=== PATIENT | female | born 1945 | race Caucasian/White ===

== ENCOUNTER 2016-09-01 14:48 | Emergency (ER) | payer MEDICARE, OTHER ==
[~2016-09-01] VITALS: Ht 149.9 cm; Wt 55.0 kg
[2016-09-01] MEDS ORDERED: SIMV20TA6 PO (15:20)
[2016-09-01] MEDS ORDERED: BACITRACIN ZINC OINT UDPKT TOP ONE (17:15)
[2016-09-01 17:16] VITALS: BP 125/66
== END 2016-09-01 17:23 | disposition home or self-care (01) ==
LOC: ER 14:57
DX: S01.01XA Laceration without foreign body of scalp, initial encounter (principal); E78.00 Pure hypercholesterolemia, unspecified; G20 Parkinson's disease; W18.09XA Striking against other object with subsequent fall, initial encounter; Y93.89 Activity, other specified; Y92.89 Other specified places as the place of occurrence of the external cause; Y99.8 Other external cause status
CPT/HCPCS: 12002; 70450; 99284

== ENCOUNTER 2017-06-23 21:27 | Inpatient (IN) | payer MEDICARE, OTHER ==
[~2017-06-23] VITALS: Ht 144.8 cm; Wt 45.4 kg
[~2017-06-23 21:27] MED LIST: ALEN70SO3 PO; B12/1TAB PO; HYDR12.54 PO; MELA5TAB3 PO; MIR25 PO; MULT-344 PO; OXYB5TAB11 PO; PREG50CA PO; SIMV20TA6 PO; TRAM50TA3 PO
[2017-06-23 21:30] VITALS: BP 97/50
[2017-06-23] MEDS ORDERED: HYDROCODONE/ACETAMINOPHEN 5/325MG TABLET PO PRN (22:15)
[2017-06-23] MEDS ORDERED: IPRATROPIUM/ALBUTEROL 0.5-3(2.5)MG/3ML NEB HHN PRN (22:15)
[2017-06-23] MEDS ORDERED: MORPHINE SULFATE 4 MG/ML CPJ (NOT FOR IM USE) IV PRN (22:15)
[2017-06-23] MEDS ORDERED: ONDANSETRON HCL 4MG/2ML VIAL IV PRN (22:15)
[2017-06-23] MEDS: IPRATROPIUM/ALBUTEROL 0.5-3(2.5)MG/3ML NEB HHN SCH (23:43)
[2017-06-24] MEDS: MELATONIN 1 MG PO SCH ×2 (01:50→22:03)
[2017-06-24] MEDS: IPRATROPIUM/ALBUTEROL 0.5-3(2.5)MG/3ML NEB HHN SCH ×4 (04:17→19:53)
[2017-06-24] MEDS: PRAMIPEXOLE DI-HCL 0.25MG TABLET PO SCH ×3 (05:14→22:04)
[2017-06-24 07:58] VITALS: BP 101/42
[2017-06-24] MEDS ORDERED: PNEUMOCOCCAL 23-VAL P-SAC VAC 0.5 ML IM ONE (08:00)
[2017-06-24] MEDS: CYANOCOBALAMIN 1000MCG TABLET PO SCH ×2 (08:49→09:00)
[2017-06-24] MEDS: PREGABALIN 25MG CAPSULE PO SCH (08:49)
[2017-06-24] MEDS: MULTIVITAMINS,THER W-MINERALS TABLET PO SCH (08:50)
[2017-06-24] MEDS: CHOLECALCIFEROL (D3) 1000 UNIT TABLET PO SCH (08:50)
[2017-06-24] MEDS: ASPIRIN 81MG TABLET PO SCH (08:51)
[2017-06-24] MEDS: DULOXETINE HCL 30MG DR CAPSULE PO SCH (08:51)
[2017-06-24] MEDS: OXYBUTYNIN CHLORIDE 5MG TABLET PO SCH ×2 (08:52→22:04)
[2017-06-24] MEDS: [UNRECOGNIZED DRUG - OTHER] PO SCH (08:53)
[2017-06-24] MEDS: OMEGA PO SCH (08:53)
[2017-06-24] MEDS: TRAMADOL 50MG TABLET PO SCH ×2 (08:57→16:56)
[2017-06-24] MEDS: HYDROCHLOROTHIAZIDE 12.5MG CAPSULE PO SCH (08:59)
[2017-06-24] MEDS ORDERED: LACTULOSE 20G/30ML UDC PO NR (12:15)
[2017-06-24 20:00] VITALS: BP 107/53
[2017-06-24] MEDS: SIMVASTATIN 20MG TABLETS PO SCH (22:05)
[2017-06-25] MEDS: IPRATROPIUM/ALBUTEROL 0.5-3(2.5)MG/3ML NEB HHN SCH ×6 (00:18→21:02)
[2017-06-25] MEDS: PRAMIPEXOLE DI-HCL 0.25MG TABLET PO SCH ×3 (06:24→21:53)
[2017-06-25 07:58] VITALS: BP 124/82
[2017-06-25] MEDS: HYDROCHLOROTHIAZIDE 12.5MG CAPSULE PO SCH (08:47)
[2017-06-25] MEDS: DULOXETINE HCL 30MG DR CAPSULE PO SCH (08:47)
[2017-06-25] MEDS: OXYBUTYNIN CHLORIDE 5MG TABLET PO SCH ×2 (08:47→21:53)
[2017-06-25] MEDS: CHOLECALCIFEROL (D3) 1000 UNIT TABLET PO SCH (08:47)
[2017-06-25] MEDS: PREGABALIN 25MG CAPSULE PO SCH (08:47)
[2017-06-25] MEDS: CYANOCOBALAMIN 1000MCG TABLET PO SCH (08:48)
[2017-06-25] MEDS: OMEGA PO SCH (08:48)
[2017-06-25] MEDS: ASPIRIN 81MG TABLET PO SCH (08:48)
[2017-06-25] MEDS: TRAMADOL 50MG TABLET PO SCH ×2 (08:48→17:36)
[2017-06-25] MEDS: MULTIVITAMINS,THER W-MINERALS TABLET PO SCH (08:48)
[2017-06-25] MEDS: [UNRECOGNIZED DRUG - OTHER] PO SCH (08:49)
[2017-06-25 20:00] VITALS: BP 109/50
[2017-06-25] MEDS: MELATONIN 1 MG PO SCH (21:49)
[2017-06-25] MEDS: SIMVASTATIN 20MG TABLETS PO SCH (21:55)
[2017-06-26] MEDS: IPRATROPIUM/ALBUTEROL 0.5-3(2.5)MG/3ML NEB HHN SCH ×6 (00:29→22:01)
[2017-06-26] MEDS: PRAMIPEXOLE DI-HCL 0.25MG TABLET PO SCH ×3 (06:03→21:06)
[2017-06-26] MEDS: ACETAMINOPHEN 650MG/20.3ML UDC PO PRN (06:55)
[2017-06-26 08:04] VITALS: BP 109/50
[2017-06-26] MEDS: OXYBUTYNIN CHLORIDE 5MG TABLET PO SCH ×2 (08:20→21:05)
[2017-06-26] MEDS: CHOLECALCIFEROL (D3) 1000 UNIT TABLET PO SCH (08:20)
[2017-06-26] MEDS: ASPIRIN 81MG TABLET PO SCH (08:20)
[2017-06-26] MEDS: DULOXETINE HCL 30MG DR CAPSULE PO SCH (08:20)
[2017-06-26] MEDS: MULTIVITAMINS,THER W-MINERALS TABLET PO SCH (08:20)
[2017-06-26] MEDS: TRAMADOL 50MG TABLET PO SCH ×2 (08:22→16:57)
[2017-06-26] MEDS: OMEGA PO SCH (08:22)
[2017-06-26] MEDS: [UNRECOGNIZED DRUG - OTHER] PO SCH (08:23)
[2017-06-26] MEDS: CYANOCOBALAMIN 1000MCG TABLET PO SCH (08:23)
[2017-06-26] MEDS ORDERED: ALENDRONATE SODIUM 35MG TABLET PO SCH (09:00)
[2017-06-26] MEDS: PREGABALIN 25MG CAPSULE PO SCH (09:57)
[2017-06-26] MEDS: HYDROCHLOROTHIAZIDE 12.5MG CAPSULE PO SCH (13:31)
[2017-06-26 20:00] VITALS: BP 101/51
[2017-06-26] MEDS: SIMVASTATIN 20MG TABLETS PO SCH (21:06)
[2017-06-26] MEDS: MELATONIN 1 MG PO SCH (21:06)
[2017-06-27] MEDS: IPRATROPIUM/ALBUTEROL 0.5-3(2.5)MG/3ML NEB HHN SCH ×6 (00:15→21:37)
[2017-06-27] MEDS: PRAMIPEXOLE DI-HCL 0.25MG TABLET PO SCH ×3 (05:05→22:19)
[2017-06-27 08:00] VITALS: BP 102/44
[2017-06-27] MEDS: HYDROCHLOROTHIAZIDE 12.5MG CAPSULE PO SCH (08:35)
[2017-06-27] MEDS: MULTIVITAMINS,THER W-MINERALS TABLET PO SCH (09:47)
[2017-06-27] MEDS: CYANOCOBALAMIN 1000MCG TABLET PO SCH (09:47)
[2017-06-27] MEDS: DULOXETINE HCL 30MG DR CAPSULE PO SCH (09:49)
[2017-06-27] MEDS: CHOLECALCIFEROL (D3) 1000 UNIT TABLET PO SCH (09:49)
[2017-06-27] MEDS: PREGABALIN 25MG CAPSULE PO SCH (09:49)
[2017-06-27] MEDS: OMEGA PO SCH (09:49)
[2017-06-27] MEDS: ASPIRIN 81MG TABLET PO SCH (09:49)
[2017-06-27] MEDS: OXYBUTYNIN CHLORIDE 5MG TABLET PO SCH ×2 (09:49→20:13)
[2017-06-27] MEDS: [UNRECOGNIZED DRUG - OTHER] PO SCH (09:50)
[2017-06-27] MEDS: TRAMADOL 50MG TABLET PO SCH ×2 (09:52→17:00)
[2017-06-27 13:37] LABS: HEMATOCRIT 37.1 % (36.0-48.0); HEMOGLOBIN 12.2 g/dL (12.0-16.0); MEAN CORPUSCULAR HEMOGLOBIN 30.4 pg (28.0-32.0); MEAN CORPUSCULAR VOLUME 92.2 fL (81.0-99.0); PLATELET 250 x1000/uL (130-400); RED BLOOD CELL COUNT 4.03 mill/uL (4.2-5.4); RED CELL DISTRIBUTION WIDTH 13.1 % (11.6-14.6)
[2017-06-27 13:48] LABS: CHLORIDE 104 mEq/L (98-107)
[2017-06-27 20:00] VITALS: BP 124/66
[2017-06-27] MEDS: TRAMADOL 50MG TABLET PO PRN (20:13)
[2017-06-27] MEDS: MELATONIN 1 MG PO SCH (20:13)
[2017-06-27] MEDS: SIMVASTATIN 20MG TABLETS PO SCH (20:14)
[2017-06-28] MEDS: IPRATROPIUM/ALBUTEROL 0.5-3(2.5)MG/3ML NEB HHN SCH ×6 (04:40→19:44)
[2017-06-28] MEDS: PRAMIPEXOLE DI-HCL 0.25MG TABLET PO SCH ×3 (07:00→21:23)
[2017-06-28 08:00] VITALS: BP 108/54
[2017-06-28] MEDS: CHOLECALCIFEROL (D3) 1000 UNIT TABLET PO SCH (08:51)
[2017-06-28] MEDS: OXYBUTYNIN CHLORIDE 5MG TABLET PO SCH ×2 (08:52→21:22)
[2017-06-28] MEDS: ASPIRIN 81MG TABLET PO SCH (08:52)
[2017-06-28] MEDS: PREGABALIN 25MG CAPSULE PO SCH (08:52)
[2017-06-28] MEDS: DULOXETINE HCL 30MG DR CAPSULE PO SCH (08:52)
[2017-06-28] MEDS: CYANOCOBALAMIN 1000MCG TABLET PO SCH (08:52)
[2017-06-28] MEDS: MULTIVITAMINS,THER W-MINERALS TABLET PO SCH (08:52)
[2017-06-28] MEDS: HYDROCHLOROTHIAZIDE 12.5MG CAPSULE PO SCH (08:52)
[2017-06-28] MEDS: [UNRECOGNIZED DRUG - OTHER] PO SCH (08:53)
[2017-06-28] MEDS: OMEGA PO SCH (08:53)
[2017-06-28] MEDS: TRAMADOL 50MG TABLET PO PRN ×2 (09:03→15:32)
[2017-06-28 20:00] VITALS: BP 109/47
[2017-06-28] MEDS: SIMVASTATIN 20MG TABLETS PO SCH (21:22)
[2017-06-28] MEDS: MELATONIN 1 MG PO SCH (21:22)
[2017-06-29] MEDS: IPRATROPIUM/ALBUTEROL 0.5-3(2.5)MG/3ML NEB HHN SCH ×6 (04:00→20:56)
[2017-06-29] MEDS: PRAMIPEXOLE DI-HCL 0.25MG TABLET PO SCH ×3 (05:00→21:04)
[2017-06-29] MEDS: IBUPROFEN 200MG TABLET PO PRN ×2 (06:29→19:58)
[2017-06-29 08:00] VITALS: BP 102/50
[2017-06-29] MEDS: HYDROCHLOROTHIAZIDE 12.5MG CAPSULE PO SCH (09:00)
[2017-06-29] MEDS: OXYBUTYNIN CHLORIDE 5MG TABLET PO SCH ×2 (09:23→21:03)
[2017-06-29] MEDS: CHOLECALCIFEROL (D3) 1000 UNIT TABLET PO SCH (09:23)
[2017-06-29] MEDS: CYANOCOBALAMIN 1000MCG TABLET PO SCH (09:24)
[2017-06-29] MEDS: DULOXETINE HCL 30MG DR CAPSULE PO SCH (09:24)
[2017-06-29] MEDS: PREGABALIN 25MG CAPSULE PO SCH (09:24)
[2017-06-29] MEDS: ASPIRIN 81MG TABLET PO SCH (09:24)
[2017-06-29] MEDS: [UNRECOGNIZED DRUG - OTHER] PO SCH (09:25)
[2017-06-29] MEDS: OMEGA PO SCH (09:25)
[2017-06-29] MEDS: MULTIVITAMINS,THER W-MINERALS TABLET PO SCH (09:25)
[2017-06-29] MEDS: TRAMADOL 50MG TABLET PO PRN (15:06)
[2017-06-29] MEDS ORDERED: CALCIUM CARBONATE 500MG TABLET CHEW PO PRN (19:30)
[2017-06-29] MEDS ORDERED: MAGNESIUM/ALUMINUM HYDROXIDE/SIMETHICONE 30ML UDC PO PRN (19:30)
[2017-06-29 20:00] VITALS: BP 110/56
[2017-06-29] MEDS: SIMVASTATIN 20MG TABLETS PO SCH (21:03)
[2017-06-29] MEDS: MELATONIN 1 MG PO SCH (21:04)
[2017-06-30] MEDS: IPRATROPIUM/ALBUTEROL 0.5-3(2.5)MG/3ML NEB HHN SCH ×5 (00:45→21:11)
[2017-06-30] MEDS: TRAMADOL 50MG TABLET PO PRN ×2 (04:31→20:43)
[2017-06-30] MEDS: PRAMIPEXOLE DI-HCL 0.25MG TABLET PO SCH ×3 (05:28→21:52)
[2017-06-30] MEDS: MULTIVITAMINS,THER W-MINERALS TABLET PO SCH (08:23)
[2017-06-30] MEDS: CYANOCOBALAMIN 1000MCG TABLET PO SCH (08:24)
[2017-06-30] MEDS: OMEGA PO SCH (08:25)
[2017-06-30] MEDS: HYDROCHLOROTHIAZIDE 12.5MG CAPSULE PO SCH (08:25)
[2017-06-30] MEDS: ASPIRIN 81MG TABLET PO SCH (08:25)
[2017-06-30] MEDS: CHOLECALCIFEROL (D3) 1000 UNIT TABLET PO SCH (08:25)
[2017-06-30] MEDS: DULOXETINE HCL 30MG DR CAPSULE PO SCH (08:25)
[2017-06-30] MEDS: OXYBUTYNIN CHLORIDE 5MG TABLET PO SCH ×2 (08:25→20:42)
[2017-06-30] MEDS: [UNRECOGNIZED DRUG - OTHER] PO SCH (08:25)
[2017-06-30 08:31] VITALS: BP 111/43
[2017-06-30] MEDS: PREGABALIN 25MG CAPSULE PO SCH (08:31)
[2017-06-30 17:06] LABS: CLARITY URINE CLEAR (CLEAR); COLOR URINE YELLOW (YELLOW); KETONES URINE NEGATIVE (NEGATIVE); LEUKOCYTE ESTERASE URINE NEGATIVE (NEGATIVE); NITRITE URINE NEGATIVE (NEGATIVE); OCCULT BLOOD URINE NEGATIVE (NEGATIVE); PROTEIN URINE NEGATIVE (NEGATIVE); UROBILINOGEN URINE 0.2 E.U./dL (0.2-1.0)
[2017-06-30 17:28] LABS: BASOPHILS % 0.4 % (0.0-2.0); EOSINOPHILS % 6.5 % (0.0-5.0); HEMATOCRIT. 36.2 % (36.0-48.0); HEMOGLOBIN. 12.1 g/dL (12.0-16.0); LYMPHOCYTES % 26.2 % (20.0-50.0); MEAN CORPUSCULAR HEMOGLOBIN 30.9 pg (28.0-32.0); MEAN CORPUSCULAR VOLUME 92.3 fL (81.0-99.0); MEAN PLATELET VOLUME 8.6 fl (7.4-10.4); MONOCYTES % 7.5 % (2.0-8.0); NEUTROPHILS % 59.4 % (40.0-76.0); PLATELET 219 x1000/uL (130-400); RED BLOOD CELL COUNT 3.93 mill/uL (4.2-5.4); RED CELL DISTRIBUTION WIDTH 13.2 % (11.6-14.6)
[2017-06-30 17:31] LABS: CHLORIDE 108 mEq/L (98-107)
[2017-06-30] MEDS: ACETAMINOPHEN 650MG/20.3ML UDC PO PRN (18:18)
[2017-06-30 20:00] VITALS: BP 96/40
[2017-06-30] MEDS: SIMVASTATIN 20MG TABLETS PO SCH (20:43)
[2017-06-30] MEDS: MELATONIN 1 MG PO SCH (20:43)
[2017-07-01] MEDS: IPRATROPIUM/ALBUTEROL 0.5-3(2.5)MG/3ML NEB HHN SCH ×5 (00:30→19:35)
[2017-07-01] MEDS: ACETAMINOPHEN 650MG/20.3ML UDC PO PRN (03:54)
[2017-07-01] MEDS: PRAMIPEXOLE DI-HCL 0.25MG TABLET PO SCH ×3 (06:25→21:25)
[2017-07-01 08:00] VITALS: BP 110/61
[2017-07-01] MEDS: MULTIVITAMINS,THER W-MINERALS TABLET PO SCH (08:32)
[2017-07-01] MEDS: CYANOCOBALAMIN 1000MCG TABLET PO SCH (08:33)
[2017-07-01] MEDS: CHOLECALCIFEROL (D3) 1000 UNIT TABLET PO SCH (08:33)
[2017-07-01] MEDS: ASPIRIN 81MG TABLET PO SCH (08:34)
[2017-07-01] MEDS: OMEGA PO SCH (08:35)
[2017-07-01] MEDS: OXYBUTYNIN CHLORIDE 5MG TABLET PO SCH ×2 (08:37→21:25)
[2017-07-01] MEDS: DULOXETINE HCL 30MG DR CAPSULE PO SCH (08:37)
[2017-07-01] MEDS: PREGABALIN 25MG CAPSULE PO SCH (08:41)
[2017-07-01] MEDS: HYDROCHLOROTHIAZIDE 12.5MG CAPSULE PO SCH (08:44)
[2017-07-01] MEDS: [UNRECOGNIZED DRUG - OTHER] PO SCH (08:44)
[2017-07-01] MEDS: TRAMADOL 50MG TABLET PO PRN (08:47)
[2017-07-01] MEDS: POLYETHYLENE GLYCOL 3350 (17GM) 1 DOSE PACK PO SCH (15:29)
[2017-07-01] MEDS: DOCUSATE SODIUM 100MG CAPSULE PO SCH (16:12)
[2017-07-01 20:00] VITALS: BP 96/37
[2017-07-01] MEDS ORDERED: SENNOSIDES 8.6MG TABLET PO SCH (21:00)
[2017-07-01] MEDS: SIMVASTATIN 20MG TABLETS PO SCH (21:25)
[2017-07-01] MEDS: MELATONIN 1 MG PO SCH (21:25)
[2017-07-02] MEDS: IPRATROPIUM/ALBUTEROL 0.5-3(2.5)MG/3ML NEB HHN SCH ×4 (00:22→11:55)
[2017-07-02] MEDS: IBUPROFEN 200MG TABLET PO PRN (04:26)
[2017-07-02] MEDS: PRAMIPEXOLE DI-HCL 0.25MG TABLET PO SCH (05:21)
[2017-07-02 08:00] VITALS: BP 110/52
[2017-07-02] MEDS: DOCUSATE SODIUM 100MG CAPSULE PO SCH (08:43)
[2017-07-02] MEDS: HYDROCHLOROTHIAZIDE 12.5MG CAPSULE PO SCH (08:43)
[2017-07-02] MEDS: OXYBUTYNIN CHLORIDE 5MG TABLET PO SCH (08:43)
[2017-07-02] MEDS: CYANOCOBALAMIN 1000MCG TABLET PO SCH (08:44)
[2017-07-02] MEDS: CHOLECALCIFEROL (D3) 1000 UNIT TABLET PO SCH (08:44)
[2017-07-02] MEDS: DULOXETINE HCL 30MG DR CAPSULE PO SCH (08:44)
[2017-07-02] MEDS: MULTIVITAMINS,THER W-MINERALS TABLET PO SCH (08:44)
[2017-07-02] MEDS: OMEGA PO SCH (08:45)
[2017-07-02] MEDS: POLYETHYLENE GLYCOL 3350 (17GM) 1 DOSE PACK PO SCH (08:46)
[2017-07-02] MEDS: PREGABALIN 25MG CAPSULE PO SCH (08:46)
[2017-07-02] MEDS: ASPIRIN 81MG TABLET PO SCH (08:46)
[2017-07-02] MEDS: [UNRECOGNIZED DRUG - OTHER] PO SCH (09:00)
[2017-07-02 10:38] VITALS: BP 110/52
== END 2017-07-02 10:30 | disposition home health service (06) | DRG 57 ==
PROVIDERS: ADMIT Psychiatry & Neurology Neurology; ATTEND Internal Medicine
DX: G20 Parkinson's disease (principal); E46 Unspecified protein-calorie malnutrition; G31.89 Other specified degenerative diseases of nervous system; S32.019A Unspecified fracture of first lumbar vertebra, initial encounter for closed fracture; S00.83XA Contusion of other part of head, initial encounter; R26.9 Unspecified abnormalities of gait and mobility; R25.1 Tremor, unspecified; E78.5 Hyperlipidemia, unspecified; R62.7 Adult failure to thrive; R29.6 Repeated falls; H26.9 Unspecified cataract; F06.31 Mood disorder due to known physiological condition with depressive features; M71.21 Synovial cyst of popliteal space [Baker], right knee; W19.XXXA Unspecified fall, initial encounter; Y93.89 Activity, other specified; Y92.89 Other specified places as the place of occurrence of the external cause; Y99.8 Other external cause status; Z88.8 Allergy status to other drugs, medicaments and biological substances; K59.03 Drug induced constipation; T40.605A Adverse effect of unspecified narcotics, initial encounter; Z79.899 Other long term (current) drug therapy; Z68.21 Body mass index [BMI] 21.0-21.9, adult; M54.5 Low back pain
CPT/HCPCS: 36415; 74018; 80048; 81003; 85025; 85027; 90732; 92523; 94640; 94664; 97110; 97112; 97116; 97162; 97166; 97530; 97535; J7620